=== PATIENT | male | born 1985 | race Caucasian/White ===

== ENCOUNTER → 2020-10-14 10:48 | Outpatient (CLI) | payer OTHER, SELFPAY ==
[2020-10-14 20:43] LABS: SARS-CoV-2 RNA PCR Negative
== END ==
PROVIDERS: PCP Family Medicine; Visit Provider Family Medicine
DX: Z20.822 Contact with and (suspected) exposure to COVID-19 (principal); R09.89 Other specified symptoms and signs involving the circulatory and respiratory systems; J00 Acute nasopharyngitis [common cold]
CPT/HCPCS: C9803; U0003; U0005

== ENCOUNTER 2022-06-09 13:49 | Emergency (ER) | payer OTHER, SELFPAY ==
[2022-06-09 14:03] VITALS: BP 128/89; PULSE 102; RESP 16; TEMP 36.1; O2SAT 100
--- NOTE | 2022-06-09 14:20 | ED.SKABFB ---
HPI - Skin/Abscess/Foreign Bdy General Chief complaint: Skin/Abscess/Foreign Body Stated complaint: Bump On Back of Neck Time Seen by Provider: 06/09/22 14:20 Source: patient, RN notes reviewed and old records reviewed Mode of arrival: ambulatory Limitations: no limitations History of Present Illness HPI narrative: 36-year-old male presents to the [facility] with a bump to the back of his neck. States that it started as a pimple several days ago, significant other was trying to pop it. Has since become red, increased warmth and more painful. Related Data Home Medications Medication Instructions Recorded Confirmed diclofenac sodium 75 mg 75 mg PO BID PRN Pain 06/09/22 06/09/22 tablet,delayed release escitalopram oxalate 10 mg tablet 10 mg PO DAILY 06/09/22 06/09/22 hydrocodone 5 mg-acetaminophen 325 1 tablet PO DIRECTED PRN Pain 06/09/22 06/09/22 mg tablet Allergies Allergy/AdvReac Type Severity Reaction Status Date / Time amoxicillin Allergy Intermediate Itching Verified 06/09/22 14:14 Review of Systems Review of Systems: All systems reviewed & are unremarkable except as noted in HPI and below Constitutional: Constitutional: Reports no additional constitutional complaints, Denies chills and Denies fever(s) Eyes: Eyes: Reports no additional eye complaints ENT: Reports system reviewed and no additional complaints, except as documented Cardiovascular: Cardiovascular: Reports no additional cardiovascular complaints Respiratory: Respiratory: Reports no additional respiratory complaints Gastrointestinal: Gastrointestinal: Reports no additional gastrointestinal complaints Musculoskeletal: Musculoskeletal: Reports no additional musculoskeletal complaints Integumentary/Breasts: Skin/Breast: Reports as per HPI and Reports erythema Neurologic: Reports system reviewed and no additional complaints, except as documented Psychiatric: Psychiatric: Reports no additional psychiatric complaints Allergic/Immunologic: Allergic/Immunologic: Reports no additional allergic/immunologic complaints [facility] Family History Family History Grandparent Hypertension Diabetes mellitus Father Hypertension Family history of diabetes mellitus in first degree relative Social History Social History Alcohol intake: current Comments At the time of my signature, I reviewed and agree with the nursing past medical, surgical, social, and family history. There is no relevant family history pertinent to the patient complaint. Exam Const: General: healthy appearing, no acute distress, alert and well nourished Nutritional Appearance: well nourished Orientation/consciousness: patient oriented x3 Limitations: no limitations HENMT: Head: normal to inspection Ears: external ears normal, TM's normal bilaterally and EAC's normal Face/Nose/Sinus: Normal external nose present Eyes: General: appearance normal, both eyes and all related structures Pupils: Equal, round and reactive pupils present Neck: Neck: normal visual inspection, no lymphadenopathy and no meningeal signs Chest: Chest palpation & inspection: normal inspection of the chest Resp: Effort & Inspection: normal respiratory effort and no use of accessory muscles Auscultation: clear to auscultation bilaterally, no crackles, no rales, no rhonchi and no wheezes Cardio: Rate: regular rate Rhythm: regular rhythm GI: GI Palp: Yes Soft to palpation and No Tenderness to palpation present (GI) Back/Spine/Pelvis: Cervical Spine: normal cervical lordosis Thoracic/Lumbar Spine: thoracic and lumbar spine normal to inspection Skin: General skin exam: normal color Rashes: no rashes Wounds: no wounds Full body images: 1. 1 cm red raised warm fluctuant area with surrounding erythema up to 2 cm. Neuro: General: patient oriented x3, moves all extremities, no meningea
[2022-06-09] MEDS: LIDOCAINE HCL 1% LOCAL INJ 2 ML AMPUL 4 ML INFILTRATE (14:31)
== END 2022-06-09 15:04 | disposition home or self-care (01) ==
PROVIDERS: Emergency Provider Nurse Practitioner; PCP Family Medicine
DX: L02.811 Cutaneous abscess of head [any part, except face] (principal); L03.811 Cellulitis of head [any part, except face]; L73.1 Pseudofolliculitis barbae
CPT/HCPCS: 10060; 87070; 87075; 87147; 87181; 87186; 87205; 99213; G0463

== ENCOUNTER 2025-06-13 11:02 | Emergency (ER) | payer OTHER, SELFPAY ==
[2025-06-13 11:09] VITALS: BP 135/86; PULSE 106; RESP 18; TEMP 36.4; O2SAT 100
--- NOTE | 2025-06-13 11:24 | ED.WOUNDLAC ---
HPI - Wound/Laceration General Chief Complaint: Wound/Laceration Stated Complaint: cut on left arm Time Seen by Provider: 06/13/25 11:03 Source: patient Mode of arrival: ambulatory Limitations: no limitations History of Present Illness HPI narrative: Kai is a 39-year-old male patient presenting to the clinic today with complaints of a possible cut or bite to the left proximal forearm. He reports this happened last week in either Monday and Monday when he was outside picking up sticks. He is unsure if he got bit by a spider. Area is become red, painful, and hard to touch with a black center. No fevers, chills, body aches. No history of diabetes. Related Data Allergies Allergy/AdvReac Type Severity Reaction Status Date / Time amoxicillin Allergy Intermediate Itching Verified 06/13/25 11:10 Review of Systems Review of Systems: Pertinent positives per HPI. Patient denies any fever, chills, rash, headache, visual changes, dizziness, cough, runny nose, sore throat, shortness of breath, chest pain, palpitations, nausea, vomiting, diarrhea, constipation, abdominal pain, or any urinary issues. [facility] Family History Family History Grandparent Hypertension Diabetes mellitus Father Hypertension Family history of diabetes mellitus in first degree relative Social History Social History Alcohol intake: current Comments At the time of my signature, I reviewed and agree with the nursing past medical, surgical, social, and family history. There is no relevant family history pertinent to the patient complaint. Exam Narrative: General: Well-developed, well nourished, in no apparent distress Head: Normocephalic, atraumatic. Cardio: Regular rate and rhythm, s1 and s2 normal, no murmur appreciated. Resp: Clear to auscultation bilaterally, no rhonchi, rales, wheezing or rubs. Integumentary: [place], warm, and dry, red, raised, tender, indurated abscess with very minimal fluctuation to the left proximal forearm near the AC, area of induration measuring 3 x 2 cm Course Course Emergency Course: Portions of this record may have been created with voice recognition software. Level of Care: Express Care Visit Vital Signs Vital signs: Vital Signs Temperature 36.4 C 06/13/25 11:09 Pulse Rate 106 H 06/13/25 11:09 Respiratory Rate 18 06/13/25 11:09 Blood Pressure 135/86 06/13/25 11:09 Pulse Oximetry 100 06/13/25 11:09 Oxygen Delivery Room Air 06/13/25 11:09 Temperature 36.4 C 06/13/25 11:09 Pulse Rate 106 H 06/13/25 11:09 Respiratory Rate 18 06/13/25 11:09 Blood Pressure 135/86 06/13/25 11:09 Pulse Oximetry 100 06/13/25 11:09 Oxygen Delivery Room Air 06/13/25 11:09 Vital signs reviewed Procedures Abscess I/D upper extremity: Date of Incision: 06/13/25 Side (if applicable): left Technique: needle aspiration and other (incised with 18 gauge needle) Irrigation: No Packing used?: none I&D Results: Pus and Blood Complications: other (None) Abcess I&D Additional Comments: Verbal consent obtained for incision and drainage. Risk and benefits explained and patient voiced understanding. Area was cleansed with antiseptic wound wash. 18 gauge needle with 5 mL syringe was used to attempt aspiration that success, 18 gauge needle was then used to incise the abscess with a very scant amount of purulent discharge was expressed with blood. Wound culture was obtained and sent to the lab. Area was re-cleansed with antiseptic wound wash and 4 x 4 dressing was applied with Coban. Patient tolerated well MDM - Wound/Laceration MDM Narrative Medical decision making narrative: At the time of visit patient is resting comfortably on the exam table. Patient appears to be nontoxic. complaints of a possible cut or bite to the left proximal forearm. He reports this happened last week in either Monday and Monday when he was outside picking up sticks. He is unsure if he got bit by a spider. Area is become red, painful, and hard to touch with a black center. No fevers, chills, body aches. No history of diabetes. On exam patient has red, raised, tender, indurated abscess with very minimal fluctuation to the left proximal forearm near the AC, area of induration measuring 3 x 2 cm. Offer to attempt to drain abscess and patient agrees. Procedure: Verbal consent obtained for drainage of abscess. Area was cleansed with antiseptic wound wash in 4x4s, 18 gauge needle with 5 mL syringe was used to attempt aspiration that success, 18 gauge needle was then used to incise the abscess with a very scant amount of purulent discharge was expressed with blood. Wound culture was obtained and sent to the lab. Area was re-cleansed with antiseptic wound wash and 4 x 4 dressing was applied with Coban. Patient tolerated well Plan: I suspect patient has likely an infected insect bite to the left proximal forearm/AC with abscess formation. Incision and drainage attempted, some exudate was expressed, wound culture was obtained and sent to the lab. Prescription for Bactrim was sent to the pharmacy. Supportive measures were discussed with the patient and they voiced understanding discharge instructions and agrees to treatment plan. Return precautions reviewed Differential Diagnosis Differential diagnosis: Likely laceration, abscess, abrasion, avulsion of skin and other (Infected insect bite) Discharge Plan Discharge Clinical Impression: Abscess Patient Disposition: Home Condition: Stable Instructions: Antibiotic Form, Abscess (ED), Abscess Incision and Drainage (DC) Additional Instructions: 18 gauge needle was used to open up abscess. Wound culture was obtained and sent to the lab May wash area with soap and water daily and pat dry Increase fluids and stay well hydrated May take Tylenol/Motrin as per bottle directions as needed for pain Take Bactrim as prescribed- take this tell it is all gone. Follow up with your PCP in 3 days for wound check. Go to the ER if symptoms worsen-increase in redness, increase in swelling, increasing pain, increasing purulent discharge, streaking, or fever Patient Language: [place] Prescriptions: New sulfamethoxazole-trimethoprim [Bactrim DS] 800-160 mg tablet 1 tablet PO Q12H 10 Days Qty: 20 0RF Follow-up/Referrals: PHYSICIAN,ADJUNCT PHYSICAL EDUCATION INSTRUCTOR [Primary Care Provider, Internal Medicine] Time of Disposition: 11:25 Quality NIHSS Nursing Documentation ED NIHSS nursing documentation: reviewed/agree
== END 2025-06-13 11:38 | disposition home or self-care (01) ==
PROVIDERS: Emergency Provider Nurse Practitioner Family
DX: L02.414 Cutaneous abscess of left upper limb (principal)
CPT/HCPCS: 10060; 87070; 87186; 87205; 99213; G0463